=== PATIENT | female | born 1995 | race Two or more races ===

== ENCOUNTER 2025-05-30 13:50 | Emergency (ER) | payer MEDICARE, OTHER | END 2025-05-30 14:01 | disposition left against medical advice (07) | LOC: ER 13:50 | DX: S49.91XA Unspecified injury of right shoulder and upper arm, initial encounter (principal); Z53.21 Procedure and treatment not carried out due to patient leaving prior to being seen by health care provider; X58.XXXA Exposure to other specified factors, initial encounter; Y93.89 Activity, other specified; Y92.89 Other specified places as the place of occurrence of the external cause; Y99.8 Other external cause status ==